=== PATIENT | male | born 2000 | race Two or more races ===

== ENCOUNTER 2020-02-13 15:44 | Outpatient (CLI) | payer OTHER | END 2020-02-13 16:02 | disposition home or self-care (01) | LOC: RAD 15:44 | PROVIDERS: ATTEND Psychiatry & Neurology Neurology | DX: M50.20 Other cervical disc displacement, unspecified cervical region (principal) ==

== ENCOUNTER 2023-06-11 12:01 | Emergency (ER) | payer OTHER ==
[~2023-06-11] VITALS: Ht 180.3 cm; Wt 66.7 kg
[2023-06-11 12:58] LABS: HEMATOCRIT 42.5 % (39.0-48.0); HEMOGLOBIN 14.9 g/dL (13-16.00); MEAN CELL VOLUME 90.7 fL (80.0-100.00); MEAN CORPUSCULAR HEMOGLOBIN 31.7 pg (27.00-32.0); PLATELET COUNT 137 K/uL (150-450); RED BLOOD COUNT 4.68 M/uL (4.00-6.00); RED CELL DISTRIBUTION WIDTH 12.9 % (11.5-14.5)
[2023-06-11 12:58] LABS: URINE APPEARANCE Clear; URINE BILIRRUBIN Negative (NEGATIVE); URINE BLOOD Small; URINE COLOR Dark Yellow; URINE GLUCOSE Negative (NEGATIVE); URINE LEUKOCYTE Negative; URINE NITRATE Negative; URINE PROTEIN 30 (NEGATIVE)
[2023-06-11 12:59] LABS: URINE BACTERIA 18.8 uL (0.0-1933); URINE EPITHELIAL CELLS 5.4 uL (0.0-38.8); URINE RBC 27.1 uL (0.0-20.8); URINE WBC 8.3 uL (0.0-23.2)
[2023-06-11 14:03] LABS: CALCIUM 8.9 mg/dL (8.5-10.1); CREATININE SERUM 1.05 mg/dL (0.70-1.30); GFR 87.53; POTASSIUM 3.9 mEq/L (3.5-5.1)
== END 2023-06-11 16:51 | disposition home or self-care (01) ==
LOC: ER 12:02
PROVIDERS: Emergency Medicine
DX: K52.89 Other specified noninfective gastroenteritis and colitis (principal)

== ENCOUNTER 2024-05-14 10:19 | Outpatient (CLI) | payer OTHER | END 2024-05-14 10:25 | disposition home or self-care (01) | LOC: RAD 10:19 | PROVIDERS: ATTEND Pediatrics | DX: N23 Unspecified renal colic (principal) ==